=== PATIENT | female | born 1960 | race Caucasian/White ===

== ENCOUNTER 2019-10-15 08:18 | Outpatient (CLI) | payer BC ==
--- NOTE | 2019-10-15 10:48 | BD ---
DEXA BONE DENSITY EXAM: HISTORY: A 59-year-old postmenopausal female for screening. FINDINGS: Lumbar Spine: BMD (g/cm2) L1 0.855 T-Score: -1.2 L2 0.862 T-Score: -1.5 L3 0.908 T-Score: +1.6 L4 0.852 T-Score: -1.9 L1-L4 0.870 T-Score: -1.6 Femoral Neck: 0.634 T-Score: -1.9 Total Femur: 0.800 T-Score: -1.2 Impression: Osteopenia. The patient has a 10-year WHO fracture risk of a major osteoporotic fracture of 9.7% and of a hip fracture of 1.2%. POS: EAA
== END 2019-10-15 08:19 | disposition home or self-care (01) ==
LOC: BICMAMMO 08:18
PROVIDERS: ATTEND Obstetrics & Gynecology
DX: Z13.820 Encounter for screening for osteoporosis (principal); M85.89 Other specified disorders of bone density and structure, multiple sites
CPT/HCPCS: 77080

== ENCOUNTER 2020-09-25 13:55 | Outpatient (CLI) | payer BC | END 2020-09-25 13:56 | disposition home or self-care (01) | LOC: BICMAMMO 13:55 | PROVIDERS: ATTEND Family Medicine | DX: Z12.31 Encounter for screening mammogram for malignant neoplasm of breast (principal); Z80.3 Family history of malignant neoplasm of breast | CPT/HCPCS: 77063; 77067 ==

== ENCOUNTER 2021-10-02 09:34 | Outpatient (CLI) | payer BC | END 2021-10-02 09:35 | disposition home or self-care (01) | LOC: BICMAMMO 09:34 | PROVIDERS: ATTEND Family Medicine | DX: Z12.31 Encounter for screening mammogram for malignant neoplasm of breast (principal); M85.89 Other specified disorders of bone density and structure, multiple sites; Z80.3 Family history of malignant neoplasm of breast | CPT/HCPCS: 77063; 77067; 77080 ==

== ENCOUNTER 2023-01-22 09:31 | Outpatient (CLI) | payer BC | END 2023-01-22 09:32 | disposition home or self-care (01) | LOC: BICMAMMO 09:31 | PROVIDERS: ATTEND Family Medicine | DX: Z12.31 Encounter for screening mammogram for malignant neoplasm of breast (principal); Z80.3 Family history of malignant neoplasm of breast | CPT/HCPCS: 77063; 77067 ==

== ENCOUNTER 2023-07-01 09:25 | Outpatient (CLI) | payer BC | END 2023-07-01 09:26 | disposition home or self-care (01) | LOC: BICRAD 09:25 | PROVIDERS: ATTEND Family Medicine | DX: N64.4 Mastodynia (principal) | CPT/HCPCS: 71046 ==

== ENCOUNTER 2023-07-09 09:12 | Outpatient (CLI) | payer BC | END 2023-07-09 09:13 | disposition home or self-care (01) | LOC: BICMAMMO 09:12 | PROVIDERS: ATTEND Family Medicine | DX: N64.4 Mastodynia (principal) | CPT/HCPCS: G0279 ==

== ENCOUNTER 2024-02-19 08:49 | Outpatient (CLI) | payer MEDICARE | END 2024-02-19 08:50 | disposition home or self-care (01) | LOC: BICMAMMO 08:49 | PROVIDERS: ATTEND Family Medicine | DX: Z12.31 Encounter for screening mammogram for malignant neoplasm of breast (principal); M85.89 Other specified disorders of bone density and structure, multiple sites; Z80.3 Family history of malignant neoplasm of breast | CPT/HCPCS: 77063; 77067; 77080 ==

== ENCOUNTER 2025-03-02 09:22 | Outpatient (CLI) | payer OTHER | END 2025-03-02 09:23 | disposition home or self-care (01) | LOC: BICMAMMO 09:22 | PROVIDERS: ATTEND Family Medicine | DX: Z12.31 Encounter for screening mammogram for malignant neoplasm of breast (principal); Z80.3 Family history of malignant neoplasm of breast | CPT/HCPCS: 77063; 77067 ==